=== PATIENT | female | born 1995 | race Hispanic/Latino ===

== ENCOUNTER 2019-08-02 13:49 | Emergency (ER) | payer BC, OTHER ==
[2019-08-02] MEDS ORDERED: LORAZEPAM 1 MG TABLET ONE (14:32)
--- NOTE | 2019-08-02 15:02 | RAD REPORT ---
EXAM DESCRIPTION: Clementina Single View08/02/2019 2:57 pm CLINICAL HISTORY: Chest pain COMPARISON: none FINDINGS: The lungs appear clear of acute infiltrate. The heart is normal size IMPRESSION: No acute abnormalities displayed
--- NOTE | 2019-08-02 15:08 | ER ---
Nurse's Notes [facility] Name: Clara Vo Age: 23 yrs Sex: Female : 1995 Arrival Date: 08/02/2019 Time: 13:51 Bed 20 Private MD: Diagnosis: Chest pain, unspecified Presentation: 08/01 14:01 Chief complaint: Patient states: States she has anxiety for 1 week. Had panic attack ll1 today while playing basketball. Had SOB, chest tightness, and N/V episode today. Stopped taking her citalopram. Coronavirus screen: Proceed with normal triage. Patient denies a cough. Patient reports shortness of breath or difficulty breathing. Patient denies measured and/or subjective temperature greater than 100.4F prior to today's visit. Patient denies travel on a cruise ship or to a country the [facility] currently lists as an affected area. Patient denies contact with known and/or suspected case of COVID-19. Ebola Screen: Patient denies travel to an Ebola-affected area in the 21 days before illness onset. Initial Sepsis Screen: Does the patient meet any 2 criteria? No. Patient's initial sepsis screen is negative. Does the patient have a suspected source of infection? No. Patient's initial sepsis screen is negative. Risk Assessment: Do you want to hurt yourself or someone else? Patient reports no desire to harm self or others. Onset of symptoms was July 26, 2019. 14:01 Method Of Arrival: Ambulatory ll1 14:01 Acuity: STEPHEN 4 ll1 Triage Assessment: 14:48 General: Appears in no apparent distress. uncomfortable, Behavior is cooperative, vc anxious. Pain: Denies pain. 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 - Social history:: Smoking status: Patient denies any tobacco usage or history of. Patient uses street drugs, marijuana, Patient/guardian denies using alcohol. Screenin:47 Abuse screen: Denies threats or abuse. Nutritional screening: No deficits noted. vc Tuberculosis screening: No symptoms or risk factors identified. Fall Risk None identified. Assessment: 14:45 General: Appears in no apparent distress. Behavior is anxious. Pain: Denies pain. Neuro: Level of Consciousness is awake, alert, Oriented to person, place, time, situation. Cardiovascular: Reports lightheadedness, palpitations, shortness of breath, episode earlier while playing basketball. She contributes this to stress and events going on in her life. 15:25 Reassessment: Patient appears in no apparent distress at this time. Patient and/or vc family updated on plan of care and expected duration. Pain level reassessed. Patient is alert, oriented x 3, equal unlabored respirations, skin warm/dry/pink. Patient states symptoms have improved. Respiratory: Airway is patent Respiratory effort is even, unlabored, Respiratory pattern is regular, symmetrical. Vital Signs: 14:01 BP 147 / 67; Pulse 83; Resp 18; Temp 98.6; Pulse Ox 100% ; Pain 5/10; ll1 14:30 BP 98 / 70; Pulse 76; Resp 18; Pulse Ox 97% on R/A; vc 15:00 BP 116 / 64; Pulse 64; Resp 17; Pulse Ox 99% ; vc ED Course: 13:51 Patient arrived in ED. mr 13:54 Rambo Crow FNP-C is [facility]. la1 13:54 Chong Saul MD is Attending Physician. la1 14:03 Triage completed. ll1 14:04 Arm band placed on Patient placed in an exam room, on a stretcher. ll1 14:15 Bed in low position. Call light in reach. Pulse ox on. NIBP on. vc 14:27 Ashia Marquez, RN is Primary Nurse. ah 14:47 EKG done, by ED staff, reviewed by Rambo GARRETT X-ray(s) taken. jp3 14:58 Chest Single View XRAY In Process Unspecified. EDMS 15:30 No provider procedures requiring assistance completed. Patient did not have IV access vc during this emergency room visit. Administered Medications: 14:33 Drug: Ativan 1 mg Route: PO; Outcome: 15:07 Discharge ordered by . la1 15:30 Patient left the ED. vc 15:30 Discharged to home via wheelchair. vc 15:30 Condition: improved 15:30 Discharge instructions given to patient, Instructed on discharge instructions, follow up and referral plans. Demonstrated understanding of instructions, follow-up care. Signatures: Dispatcher [employer] Tiff Parker mr TristinRambo, QUILT STUFFER-C QUILT STUFFER-Cla1 Patrick Adams jp3 Sharda Pizarro RN RN vc Harris, Amy, RN RN ah Lewis, Lynsay, RN RN ll1 Corrections: (The following items were deleted from the chart) 15:52 15:50 Patient left the ED. vc cano
--- NOTE | 2019-08-02 15:09 | EDPHYS ---
Physician Documentation [facility] Name: Clara Vo Age: 23 yrs Sex: Female : 1995 Arrival Date: 08/02/2019 Time: 13:51 Bed 20 Private MD: ED Physician Chong Saul HPI: 08/01 14:48 This 23 yrs old Female presents to ER via Ambulatory with complaints of la1 Anxiety. 14:48 The patient or guardian reports chest pain that is located primarily in the anterior la1 chest wall. The pain does not radiate. 15:03 Associated signs and symptoms: Pertinent negatives: diaphoresis, dizziness, headache, la1 lower extremity swelling, lightheadedness, nausea, near syncope. The chest pain is described as squeezing. Duration: The patient or guardian reports a single episode, that is now resolved. Modifying factors: The symptoms are alleviated by nothing. the symptoms are aggravated by nothing. Severity of pain: At its worst the pain was moderate in the emergency department the pain has improved. The patient has not experienced similar symptoms in the past. pt reports she has been under a lot of stress with multiple family and friend losses in the past couple weeks. 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 - Social history:: Smoking status: Patient denies any tobacco usage or history of. Patient uses street drugs, marijuana, Patient/guardian denies using alcohol. ROS: 15:04 Constitutional: Negative for fever, chills, and weight loss, Eyes: Negative for injury, la1 pain, redness, and discharge, ENT: Negative for injury, pain, and discharge, Neck: Negative for injury, pain, and swelling. 15:04 Respiratory: Negative for shortness of breath, cough, wheezing, and pleuritic chest pain, Abdomen/GI: Negative for abdominal pain, nausea, vomiting, diarrhea, and constipation, Back: Negative for injury and pain, MS/Extremity: Negative for injury and deformity, Skin: Negative for injury, rash, and discoloration, Neuro: Negative for headache, weakness, numbness, tingling, and seizure. 15:04 Cardiovascular: Positive for chest pain. Exam: 15:04 Constitutional: This is a well developed, well nourished patient who is awake, alert, la1 and in no acute distress. Head/Face: Normocephalic, atraumatic. Eyes: Pupils equal round and reactive to light, extra-ocular motions intact. Chest/axilla: Normal chest wall appearance and motion. Nontender with no deformity. No lesions are appreciated. Cardiovascular: Regular rate and rhythm with a normal S1 and S2. Respiratory: Lungs have equal breath sounds bilaterally, clear to auscultation Abdomen/GI: Soft, non-tender, with normal bowel sounds. Skin: Warm, dry with normal turgor. Normal color with no rashes, no lesions, and no evidence of cellulitis. 15:05 ECG was reviewed by the Attending Physician. la1 Vital Signs: 14:01 BP 147 / 67; Pulse 83; Resp 18; Temp 98.6; Pulse Ox 100% ; Pain 5/10; ll1 14:30 BP 98 / 70; Pulse 76; Resp 18; Pulse Ox 97% on R/A; vc 15:00 BP 116 / 64; Pulse 64; Resp 17; Pulse Ox 99% ; vc MDM: 13:54 Patient medically screened. la1 15:06 Differential diagnosis: abnormal EKG, acute myocardial infarction, anxiety, chest wall la1 pain, cholecystitis, costochondritis, esophagitis, gastritis. ECG:. AIRAM Risk Score: TOTAL SCORE = 0. Data reviewed: vital signs, nurses notes, EKG, radiologic studies, I have discussed the patient's presentation/case with the attending Emergency Department Physician; and as a result, I will discharge patient. Data interpreted: Pulse oximetry: on room air is 97 %. Interpretation: normal. Counseling: I had a detailed discussion with the patient and/or guardian regarding: the historical points, exam findings, and any diagnostic results supporting the discharge/admit diagnosis, radiology results, the need for outpatient follow up, a family practitioner, to return to the emergency department if symptoms worsen or persist or if there are any questions or concerns that arise at home. Special discussion: Based on the patient's history, exam, and Dx evaluation, there is no indication for emergent intervention or inpatient Tx. It is understood by the patient/guardian that if the Sx's persist or worsen they need to return immediately for re-evaluation. 08/01 14:25 Order name: Chest Single View XRAY; Complete Time: 15:04 la08/01 14: Order name: EKG; Complete Time: 14: la08/01 14: Order name: EKG - Nurse/Tech; Complete Time: 14:46 la1 EC:05 Rate is 57 beats/min. Rhythm is regular, Sinus bradycardia. QRS is negative in lead la1 aVF. QRS interval is normal. QT interval is normal. No Q waves. T waves are Inverted in leads aVR, V1. No ST changes noted. Clinical impression: Normal ECG and Sinus bradycardia. Administered Medications: 14: Drug: Ativan 1 mg Route: PO; Disposition: 08/02/19 15:07 Discharged to Home. Impression: Chest pain, unspecified. - Condition is Stable. - Discharge Instructions: Nonspecific Chest Pain, Nonspecific Chest Pain, [id number]. - Work release form, Medication Reconciliation Form, Thank You Letter form. - Follow up: Private Physician; When: 2 - 3 days; Reason: Recheck today's complaints, Re-evaluation by your physician. Follow up: Emergency Department; When: As needed; Reason: Worsening of condition. - Problem is new. - Symptoms have improved. Addendum: 08/04/2019 09:57 Co-signature as Attending Physician, Chong Saul MD I agree with the assessment and c godfrey plan of care. Signatures: Dispatcher [employer] Chong Chapman MD MD cha Attema, Lee, PRESSURE TANK OPERATOR-C PRESSURE TANK OPERATOR-Cla1 Sharda Pizarro RN RN vc Harris, Amy, RN RN Agnes Manuel RN RN ll1 Corrections: (The following items were deleted from the chart) 08/01 15:50 15:07 08/02/2019 15:07 Discharged to Home. Impression: Chest pain, unspecified. vc Condition is Stable. Forms are Medication Reconciliation Form, Thank You Letter, Antibiotic Education, Prescription Opioid Use. Follow up: Private Physician; When: 2 - 3 days; Reason: Recheck today's complaints, Re-evaluation by your physician. Follow up: Emergency Department; When: As needed; Reason: Worsening of condition. Problem is new. Symptoms have improved. la1
[2019-08-02 15:58] VITALS: TEMP 98.6
[2019-08-02 16:00] VITALS: BP 98/70; O2SAT 97
--- NOTE | 2019-08-03 06:49 | EKG ---
Test Date: 2019-08-02 Test Time: 14:36:17 Molded Goods Operator: DEBO MEASUREMENT RESULTS: Intervals: Rate: 57 WI: 154 QRSD: 90 QT: 424 QTc: 412 [place]: P: 40 WI: 154 QRS: 72 T: 53 INTERPRETIVE STATEMENTS: Sinus bradycardia Otherwise normal ECG No previous ECG available for comparison Electronically Signed On 08-03-19 06:48:34 CDT by Ivan Spears
== END 2019-08-02 15:50 | disposition home or self-care (01) ==
LOC: ER 13:49
DX: R07.9 Chest pain, unspecified (principal)
CPT/HCPCS: 71045; 93005; 99284

== ENCOUNTER 2023-08-02 12:11 | Emergency (ER) | payer SELFPAY ==
--- OUTSIDE RECORDS SUMMARY | 2023-08-02 12:14 | XMS REPORT | Continuity of Care Document ---
Author Name Unknown Address [address] [facility] [place] [address] [facility] Address [address] [facility] [address] [place] [address] Care Team Providers Care Schedule Hanger Name Role Phone Mckenna Pompa MD Primary Care Physician [phone] LILI FRANCO Attending Clinician Unavailab Lili Rivera DO Attending Clinician [phone] ELMA YEE Attending Clinician Unavailable Tyron Murguia Attending Clinician [phone] TYRON FLORES Attending Clinician Unavailable RINA NAIK Attending Clinician Unavailable Rina Naik PA-C Attending Clinician [phone] TEMO COTO Attending Clinician Unavailable Loren RENEE Attending Clinician Unavailable Loren Draper Attending Clinician [phone] MD REMINGTON Attending Clinician Unavailab Shireen Martinez RN Attending Clinician Unavailable MAGGIE CARDENAS Attending Clinician Unavaildereck e Only, Ang Db Test Attending Clinician UnavailMaggie García Attending Clinician [phone] LAB47 Attending Clinician Unavailable Chica STEVE, [place] Attending Clinician Doctor Unassigned, [place] Attending Clinician U cliff NurseJosh Urgent Attending Clinician Unavaildereck Reynolds MD, Fredy Shaw Attending Clinician ARY JACINTO M.D. Attending Clinician UnavailLYNDA Neff P.A. Attending Clinician Unavail TYRON Stokes Admitting Clinician Unavailable Payers Payer Name Policy Type Policy Number Effective Date Expirati on Date Source [employer]IG[employer] WITH MARIAJOSE ADDISON [id number] 2010 00:00:00 [facility] 2019 9 [id number] 2021 00:00:00 Problems Condition Name Condition Details Condition Category Status Onset Date Resolution Date Last Treatment Date Treating Clinician Comments Source Acquired acanthosis nigricans Acquired acanthosis nigricans Disease Active 10-31 00:00: 00 Mariajose Addison Depressive disorder, not elsewhere classified Depressive disorder, not elsewhere classified Disease Active 10-31 00:00: 00 Mariajose Addison Morbidly obese Morbidly obese Disease Active 10-31 00:00: 00 Mariajose Addison No known active problems No known active problems Disease [facility] Allergies, Adverse Reactions, Alerts Allergy Name Allergy Type Status Severity Reaction(s) Onset Date Inactive Date Treating Clinician Comments Source NO KNOWN ALLERGIE S Drug Class Active [facility] Social History Social Habit Start Date Stop Date Quantity Comments Source [facility] History of Social function 2022-10-25 00:00:00 2022-10-25 00:00:00 [facility] Exposure to SARS-CoV-2 (event) 2021-12-23 00:00:00 2022-01-02 11:57:00 Not sure [facility] Alcohol intake 2021-09-12 00:00:00 2021-09-12 00:00:00 Current non-drinker of alcohol (finding) Mariajose Addison Tobacco use and exposure 2017-05-14 00:00:00 2017-05-14 00:00:00 Smokeless tobacco non-user Mariajose Armijoold Sex Assigned At 1995 00:00:00 1995 00:00:00 Mariajose Secarisa Smoking Status Start Date Stop Date Source Never smoked tobacco Mariajose Addisno Medications Ordered Medication Name Filled Medication Name Start Date Stop Date Current Medication? Ordering Clinician Indication Dosage Frequency Signature (SIG) Comments Components Source sulfamethox azole-trime thoprim (BACTRIM DS) 800-160 mg per tablet 1 tablet 10-26 01:00: 00 10-29 00:59 :00 No 1{tbl} 1 tablet, Oral, BID, 6 doses, First dose on Sun10/25/22 at 2000, Last dose on Sun10/28/22 at 0800, ANA
Re ason for Anti-Infec tive: Documented Infection< br>Documen tez Infection Site: Urine
D uration of Therapy: 7 days [facility] Nitrofurant oin&Nit. Macrocryst 100 mg capsule 10-25 00:00: 00 10-31 04:59 :00 No [id number] 100mg Take 1 capsule by mouth in the morning and 1 capsule in the evening. Do all this for 5 days. [facility] dicyclomine (BENTYL) tablet 20 mg 01-02 17:15: 00 01-02 17:23 :00 No 20mg 20 mg, Oral, ONCE, 1 dose, On Sun01/02/22 at 1215, ANA [facility] NaCl 0.9% (NS) bolus infusion 1,000 mL 01-02 16:45: 00 01-02 17:15 :00 No 1000mL at 999 mL/hr, 1,000 mL, IV Infusion, ONCE, 1 dose, On Sun01/02/22 at 1145, ANA [facility] iopamidol (ISOVUE 370-500 mL) injection 79 mL 01-02 16:33: 00 01-02 16:33 :00 No [id number] 79mL 79 mL, Intravenou s, ONCE, 1 dose, On Sun01/02/22 at 1145, Routine [facility] ondansetron (ZOFRAN (PF)) injection 4 mg 01-02 16:00: 00 01-02 16:12 :00 No 4mg 4 mg, Slow IV Push, ONCE, 1 dose, On Sun01/02/22 at 1100, ANA [facility] morpHINE (4 mg/mL) injection 4 mg 01-02 16:00: 00 01-02 16:12 :00 No 4mg 4 mg, Slow IV Push, ONCE, 1 dose, On Sun01/02/22 at 1100, STAT [facility] dicyclomine 20 mg tablet 01-02 00:00: 00 10-25 00:00 :00 No [id number] 20mg Take 1 tablet by mouth 4 (four) times daily as needed for Abdominal pain. [facility] ondansetron 4 mg disintegrat ing tablet 01-02 00:00: 10-25 00:00 :00 No [id number] 4mg Take 1 tablet by mouth every 8 (eight) hours as needed for Nausea and Vomiting (N/V). [facility] ibuprofen (IBU) tablet 600 mg 09-05 01:00: 00 09-05 12:59 :00 No 600mg 600 mg, Oral, ONCE, 1 dose, On 09/04/21 at 2000, ANA [facility] doxycycline hyclate (Vibramycin ) capsule 100 mg 09-05 01:00: 00 09-05 00:05 :00 No 100mg 100 mg, Oral, ONCE, 1 dose, On 09/04/21 at 2000, ANA
Re ason for Anti-Infec tive: Documented Infection< br>Documen tez Infection Site: Skin / Soft Tissue
Duration of Therapy: 10 days [facility] Doxycycline Hyclate 100 MG oral Capsule 09-04 00:00: 00 Yes 1{capsu le} Take 1 capsule by mouth in the morning and 1 capsule in the evening. - 10 day course. Mariajose Addison Ibuprofen 600 MG oral Tablet 09-04 00:00: 00 Yes 1{tbl} Q.25D Take 1 tablet by mouth every 6 hours as needed for pain Mariajose Addison doxycycline hyclate 100 mg capsule 09-04 00:00: 00 10-25 00:00 :00 No [id number] 100mg Take 1 capsule by mouth 2 (two) times daily. [facility] ibuprofen 600 mg tablet 09-04 00:00: 10-25 00:00 :00 No [id number] 600mg Take 1 tablet by mouth every 6 (six) hours as needed for Pain (scale 4-6). [facility] Baclofen 10 MG oral Tablet - 00:00: 00 09-06 00:00 :00 No [id number] 10mg [id number] 3D Take 1 tablet (10 mg total) by mouth 3 times daily as needed for muscle spasms or pain Mariajose Addison metoclopram kevin HCl (REGLAN) injection 10 mg 11-10 09:45: 00 11-10 08:34 :00 No 10mg 10 mg, Slow IV Push, ONCE, 1 dose, 11/11/19 at 0445, [facility] ondansetron (ZOFRAN (PF)) injection 4 mg 11-10 08:45: 11-10 07:47 :00 No 4mg 4 mg, Slow IV Push, ONCE, 1 dose, 11/11/19 at 0345, [facility] NaCl 0.9% (NS) bolus infusion 1,000 mL 11-10 07:45: 11-10 11:12 :00 No 1000mL at 999 mL/hr, 1,000 mL, IV Infusion, ONCE, 1 dose, 11/11/19 at 0245, [facility] metoclopram kevin HCl 10 mg tablet 11-10 00:00: 00 10-25 00:00 :00 No [id number] 10mg Take 1 tablet by mouth every 6 (six) hours as needed for Nausea and Vomiting (N/V). [facility] Ondansetron HCl 4 MG oral Tab 8-03 00:00: 04-19 00:00 :00 No 4mg Q8H Take 1 tablet (4 mg total) by mouth every 8 hours as needed for nausea Mariajose Addison Citalopram Hydrobromid e 40 MG oral Tab 722 00:00: 00 04-19 00:00 :00 No [id number] 40mg Take 1 tablet (40 mg total) by mouth daily Mariajose Addison ondansetron (ZOFRAN ODT) 8 mg disintegrat ing tablet 12-23 00:00: 00 10-25 00:00 :00 No 8mg Take 1 tablet by mouth every 8 (eight) hours as needed for Nausea and Vomiting (N/V). [facility] dicyclomine (BENTYL) 20 mg tablet 12-23 00:00: 11-10 00:00 :00 No 20mg Take 1 tablet by mouth 3 (three) times daily as needed for Abdominal pain. [facility] traMADOL (ULTRAM) 50 mg tablet 09-02 00:00: 11-10 00:00 :00 No 50mg Take 1 tablet by mouth every 6 (six) hours as needed for Pain (scale 4-6). [facility] pantoprazol e (PROTONIX) 40 mg EC tablet 08-29 00:00: 11-10 00:00 :00 No 40mg Take 1 tablet by mouth daily. [facility] dicyclomine (BENTYL) 20 mg tablet 08-29 00:00: 11-10 00:00 :00 No 20mg Take 1 tablet by mouth 4 (four) times daily. [facility] metoclopram kevin HCl (REGLAN) 10 mg tablet 08-07 00:00: 11-10 00:00 :00 No 10mg Take 1 tablet by mouth every 6 (six) hours. [facility] Vital Signs Vital Name Observation Time Observation Value Comments S ource Systolic blood pressure 2022-10-26 02:15:00 121 mm[Hg] [facility] Diastolic blood pressure 2022-10-26 02:15:00 73 mm[Hg] [facility] Heart rate 2022-10-26 02:15:00 77 /min [facility] Respiratory rate 2022-10-26 02:15:00 16 /min [facility] Oxygen saturation in Arterial blood by Pulse oximetry 2022-10-26 02:15:00 97 /min [facility] Body temperature 2022-10-25 18:55:00 35.72 Lety [facility] Body height 2022-10-25 18:55:00 154.9 cm [facility] Body weight 2022-10-25 18:55:00 99.791 kg [facility] BMI 2022-10-25 18:55:00 41.57 kg/m2 [facility] Systolic blood pressure 2022-01-02 15:57:00 132 mm[Hg] [facility] Diastolic blood pressure 2022-01-02 15:57:00 88 mm[Hg] [facility] Heart rate 2022-01-02 15:57:00 96 /min [facility] Body temperature 2022-01-02 15:57:00 36.61 Lety [facility] Respiratory rate 2022-01-02 15:57:00 20 /min [facility] Body height 2022-01-02 15:57:00 157.5 cm [facility] Body weight 2022-01-02 15:57:00 104.327 kg [facility] BMI 2022-01-02 15:57:00 42.07 kg/m2 [facility] Oxygen saturation in Arterial blood by Pulse oximetry 2022-01-02 15:57:00 97 /min [facility] Systolic blood pressure 2021-09-12 19:06:00 120 mm[Hg] Mariajose bowen Diastolic blood pressure 2021-09-12 19:06:00 70 mm[Hg] Mariajose bowen Heart rate 2021-09-12 19:06:00 80 /min Ashley Addison Body temperature 2021-09-12 19:06:00 36.56 Lety Mariajose Bernalybfernie Respiratory rate 2021-09-12 19:06:00 13 /min Mariajose Addison Body weight 2021-09-12 19:06:00 116.121 kg Marnie allen Seybfernie BMI 2021-09-12 19:06:00 50.00 kg/m2 Marnie ey Seybold BMI 2021-09-06 20:04:00 49.45 kg/m2 Marnie ey Seybold Systolic blood pressure 2021-09-06 20:04:00 126 mm[Hg] Mariajose Seybo ld Diastolic blood pressure 2021-09-06 20:04:00 84 mm[Hg] Mariajose Seybo ld Heart rate 2021-09-06 20:04:00 84 /min Ashley Addison Body temperature 2021-09-06 20:04:00 36.39 Lety Mariajose Addison Respiratory rate 2021-09-06 20:04:00 18 /min Mariajose Addison Body weight 2021-09-06 20:04:00 114.851 kg Marnie allen Seybfernie Systolic blood pressure 2021-09-04 22:29:00 125 mm[Hg] [facility] Diastolic blood pressure 2021-09-04 22:29:00 85 mm[Hg] [facility] Heart rate 2021-09-04 22:29:00 72 /min [facility] Body temperature 2021-09-04 22:29:00 36.28 Lety [facility] Respiratory rate 2021-09-04 22:29:00 18 /min [facility] Body weight 2021-09-04 22:29:00 104.327 kg [facility] BMI 2021-09-04 22:29:00 43.46 kg/m2 [facility] Oxygen saturation in Arterial blood by Pulse oximetry 2021-09-04 22:29:00 99 /min [facility] Systolic blood pressure 2021-04-19 15:20:00 122 mm[Hg] Mariajose Seybo ld Diastolic blood pressure 2021-04-19 15:20:00 78 mm[Hg] Mariajose Seybo ld Heart rate 2021-04-19 15:20:00 80 /min Ahsley Addison Body temperature 2021-04-19 15:20:00 36.44 Lety Mariajose Addison Respiratory rate 2021-04-19 15:20:00 18 /min Mariajose Addison Body weight 2021-04-19 15:20:00 110.859 kg Marnie Addison BMI 2021-04-19 15:20:00 47.73 kg/m2 Marnie Addison Systolic blood pressure 2019-11-11 10:58:00 100 mm[Hg] [facility] Diastolic blood pressure 2019-11-11 10:58:00 59 mm[Hg] [facility] Heart rate 2019-11-11 10:45:00 67 /min [facility] Oxygen saturation in Arterial blood by Pulse oximetry 2019-11-11 10:45:00 99 /min [facility] Respiratory rate 2019-11-11 09:00:00 16 /min [facility] Body temperature 2019-11-11 07:42:00 36.78 Lety [facility] Body height 2019-11-11 07:42:00 154.9 cm [facility] Body weight 2019-11-11 07:42:00 104.327 kg [facility] BMI 2019-11-11 07:42:00 43.46 kg/m2 [facility] Procedures Procedure Date / Time Performed Performing Clinician Source PROTHROMBIN TIME / INR 2022-10-25 22:22:00 Albert Franco [facility] ACTIVATED PARTIAL THRMPLAS MELIZA 2022-10-25 22:22:00 Lili Franco [facility] SALICYLATE 2022-10-25 22:21:00 [facility] COMP. METABOLIC PANEL ([id number]) 2022-10-25 19:57:00 Lili Franco [facility] ETHANOL 2022-10-25 19:57:00 Lili Franco [facility] CBC WITH DIFF 2022-10-25 19:57:00 [facility] 2022-10-25 19:57:00 Lili Franco [facility] COVID-19 (MOLECULAR TESTING NUCLEIC ACID AMPLIFICATION) 2022-10-25 19:57:00 Lili Franco [facility] COVID-19 (ID NOW RAPID TESTING) 2022-10-25 19:57:00 Lili Franco [facility] URINE DRUG (IMMUNOASSAY) - COMPREHENSIVE DRUG SCREEN W/O REFLEX 2022-10-25 19:57:00 Lili Franco [facility] CT ABDOMEN PELVIS W CONTRAST 2022-01-02 16:38:00 Mor [facility] LIPASE 2022-01-02 16:11:00 Mor [facility] COMP. METABOLIC PANEL ([id number]) 2022-01-02 16:11:00 [facility] 2022-01-02 16:11:00 Tyron Flores [facility] URINALYSIS 2022-01-02 16:11:00 Mor [facility] POCT TEST 2022-01-02 16:11:00 Sandrita Flores [facility] CONSENT/REFUSAL FOR DIAGNOSIS AND TREATMENT 2022-01-02 15:40:28 Doctor Unassigned, [place] [facility] NOTICE OF PRIVACY PRACTICES 2021-09-04 22:27:13 Doctor Unassigned, [place] [facility] CONSENT/REFUSAL FOR DIAGNOSIS AND TREATMENT 2021-09-04 22:27:00 Doctor Unassigned, [place] [facility] URINALYSIS 2019-11-11 08:41:00 Lili Franco [facility] POCT TEST 2019-11-11 08:37:00 Zaira Franco ra [facility] XR CHEST 1 VW 2019-11-11 08:10:13 [facility] 2019-11-11 07:46:00 Lili Franco [facility] HEPATIC FUNCTION PANEL ([id number]) (ALB,T.PRO,BILI T,BU/BC,ALT,AST,ALK PHOS) 2019-11-11 07:46:00 Lili Franco [facility] BASIC METABOLIC PANEL (NA, K, CL, CO2, GLUCOSE, BUN, CREATININE, CA) 2019-11-11 07:46:00 Lili Franco [facility] CBC WITH DIFF 2019-11-11 07:46:00 [facility] XRAY PELVIS MIN 3 VWS [id number] 2019-01-17 00:00:00 [facility] [U] XRAY PELVIS MIN 3 VWS [id number] 2018-10-18 00:00:00 [facility] [U] XRAY PELVIS MIN 3 VWS [id number] 2018-09-04 00:00:00 [facility] Encounters Start Date/Time End Date/Time Encounter Type Admission Type Attending [facility] Care Facility Care Department Encounter ID Source 2022-10-25 13:55:00 2022-10-25 22:11:00 Emergency X LILI FRANCO [facility] ERT [id number] [facility] 2022-10-25 13:55:00 2022-10-25 22:11:00 Emergency Lili Franco [facility] [id number] 350.1.13.10 4.2.7.2.686 [id number] [facility] 2022-04-05 00:00:00 2022-04-05 00:00:00 Outpatient ELMA YEE [id number] Mariajose carisa 2022-01-02 10:58:00 2022-01-02 13:04:00 Emergency Tyron Flores [facility] .2.840.114 350.1.13.10 4.2.7.2.686 [id number] [facility] 2022-01-02 10:58:00 2022-01-02 13:04:00 Emergency X FLORES, TYRON [facility] ERT [id number] [facility] 2022-01-02 00:00:00 2022-01-02 00:00:00 Outpatient ELMA YEE [id number] [facility] 2021-09-13 14:00:00 2021-09-13 14:00:00 Outpatient RINA NAIK [facility]IAJOSE DRAKE [id number] [facility] 2021-09-12 14:00:00 2021-09-12 14:30:00 Office Visit Rina Naik 1.2.840.114 350.1.13.13 [id number] [id number] [facility] 2021-09-09 15:45:00 2021-09-09 15:45:00 Outpatient MARIAJOSE DRAKE [id number] [facility] 2021-09-09 15:30:00 2021-09-09 15:30:00 Outpatient MARIAJOSE DRAKE [id number] [facility] 2021-09-07 16:00:00 2021-09-07 16:00:00 Outpatient TEMO COTO MARIAJOSE DRAKE [id number] Mariajose [facility] 2021-09-06 14:45:00 2021-09-06 14:45:00 Office Visit TEMO COTO 1.2.840.114 350.1.13.13 1.2.7.2.686 [id number] Mariajose [facility] 2021-09-04 17:32:00 2021-09-04 19:10:00 Emergency X Loren RENEE [facility] ERT [id number] [facility] 2021-09-04 17:32:00 2021-09-04 19:10:00 Emergency Loren Renee [facility] 1.2.840.114 350.1.13.10 4.2.7.2.686 [id number] [facility] 2021-08-22 00:00:00 2021-08-22 00:00:00 Outpatient MD MARIAJOSE FRENCH [id number] Mariajose carisa 2021-05-23 00:00:00 2021-05-23 00:00:00 Outpatient MD MARIAJOSE FRENCH [id number] [facility] 2021-05-18 00:00:00 2021-05-18 00:00:00 Telephone Shireen Miranda [facility] 1..114 350.1.13.10 4.2.7.2.686 [id number] [facility] 2021-05-17 13:15:00 2021-05-17 13:39:11 [facility] [id number] [facility] 2021-05-17 13:15:00 2021-05-17 13:30:00 Laboratory Only Only, Ang Db Test [facility] 1.2.114 350.1.13.10 4.2.7.2.686 [id number] [facility] 2021-04-19 11:15:00 2021-04-19 11:15:00 Outpatient LAB47 MARIAJOSE DRAKE [id number] [facility] 2021-04-19 09:00:00 2021-04-19 09:15:00 Office Visit Temo Coto 1..114 350.1.13.13 1.2.7.2.686 [id number] [facility] 2021-03-22 00:00:00 2021-03-22 00:00:00 Patient Secure Msg Doctor Unassigned, [place] [facility] 1..114 350.1.13.10 4.2.7.2.686 [id number] [facility] 2019-11-12 00:00:00 2019-11-12 00:00:00 [facility] 1.2.114 350.1.13.10 4.2.7.2.686 [id number] [facility] 2019-11-12 00:00:00 2019-11-12 00:00:00 Telephone Fredy Reynolds [facility] 1.2.840.114 350.1.13.10 4.2.7.2.686 [id number] [facility] 2019-11-11 02:33:00 2019-11-11 06:15:00 Emergency Lili Franco [facility] 1.2.840.114 350.1.13.10 4.2.7.2.686 [id number] [facility] 2019-11-11 02:33:00 2019-11-11 02:33:00 Emergency X LILI FRANCO [facility] ERT [id number] [facility] 2019-01-23 11:00:00 2019-01-23 11:00:00 Appointmen t; RAY JACINTO M.D. GARY, JOSHUA, M.D. [facility] Orthopedics Tra[facility] [id number] [place] [facility] 2018-10-24 11:00:00 2018-10-24 11:00:00 Appointmen t; RAY JACINTO M.D. GARY, JOSHUA, M.D. [facility] Orthopedics Trauma [facility] [id number] [place] [facility] 2018-09-12 11:15:00 2018-09-12 11:15:00 Appointmen t; LYNDA VANG P.A. LIVELY, AUDREY, P.A. [facility] Orthopedics [id number] [place] [facility] 2018-08-15 11:15:00 2018-08-15 11:15:00 Appointmen t; RAY JACINTO M.D. GARY, JOSHUA, M.D. [facility] [id number] [place] [facility] Results Test Description Test Time Test Comments Results Result Comments Source SALICYLATE 23:10:25 SALICYLATE<10mg/L10/26/19 23 6:10 PM [facility] Range: ? Analgesic and Antipyretic Use ? 20-100 mg/L ? ? Anti-Inflammatory Use ? 100-250 mg/L Toxic Range: ? Greater than 300 mg/L [facility] [id number] 23:00:41* Test Item Value Reference Range Interpretation Comme [facility] APTT Patient (test code = 3173-2) 29 See_Comment [Automated message] The system which generated this result transmitted reference range: 23 - 38 Seconds. The reference range was not used to interpret this result as normal/abnormal. LAILA (test code = LAILA) The [facility] patient population mean normal value for aPTT is 30 seconds. Lab Interpretation (test code = 34765-2) Normal [facility] TIME / [id number] 22:58:42* Test Item Value Reference Range Interpretation Comme [facility] PROTIME PATIENT (test code = 5964-2) 13.4 See_Comment [Automated messa ge] The system which generated this result transmitted reference range: 12.0 - 14.7 Seconds. The reference range was not used to interpret this result as normal/abnormal. INR (test code = 6301-6) 1.1 Normal INR <1.1; Warfarin Therapeutic range 2.0 to 3.0 or 2.5 to 3.5, depending upon the indications. Lab Interpretation (test code = 55436-7) Normal [facility] HospitalETH[facility]OL2023-07-19 20:57:11 ALCOHOL<10mg/dL10/25/2022 3:57 PM [facility]<10 [id number] Toxic>100 Depression of SUPERVISOR PRE WAVE>400 [facility]Un[facility] HospitalCOMP. METABOLIC PANEL ([id number])2022-10-25 20:54:42* Test Item Value Reference Range Interpretation Comme [facility] NA (test code = 3019098372) 136 mmol/L 135-145 K (test code = 1577695649) 5.4 mmol/L 3.5-5.0 H CL (test code = 6159501276) 103 mmol/L 98-108 CO2 TOTAL (test code = 0750179222) 23 mmol/L 23-31 AGAP (test code = 6494825003) 10 2-16 BUN (test code = 3665462589) 13 mg/dL 7-23 GLUCOSE (test code = 3155566664) 103 mg/dL 70-110 CREATININE (test code = 9652101251) 0.53 mg/dL 0.50-1.04 TOTAL BILI (test code = 9338138823) 0.8 mg/dL 0.1-1.1 CALCIUM (test code = 1366018502) 9.0 mg/dL 8.6-10.6 T PROTEIN (test code = 2499955871) 7.2 g/dL 6.3-8.2 ALBUMIN (test code = 1852790839) 4.2 g/dL 3.5-5.0 ALK PHOS (test code = 5778127630) 63 U/L 34-122 ALTv (test code = 1742-6) 21 U/L 5-35 AST(SGOT) (test code = 5847667458) 34 U/L 13-40 eGFR (test code = 9527835403) 139.4 mL/min/1.73m2 LAILA (test code = LAILA) Association of Glomerular Filtration Rate (GFR) and Staging of Kidney Disease* + --+ --+ ------+| GFR (mL/min/1.73 m2) ?| With Kidney Damage ?| ?Without Kidney Damage+ --------+ --------+ +| ?>90 ?| ?Stage one ?| ? Normal ?+ ---+ ---+ -------+| ?60-89 ?| ?Stage two ?| ? Decreased GFR ? + --+ --+ ------+| ?30-59 ?| ?Stage three ?| ? Stage three ? + --+ --+ ------+| ?15-29 ?| ?Stage four ? | ? Stage four ?+ ---+ ---+ -------+| ?<15 (or dialysis) ? ?| ?Stage five ? | ? Stage five ?+ ---+ ---+ -------+ *Each stage assumes the associated GFR level has been in effect for at least three months. ?Stages 1 to 5, with or without kidney disease, indicate chronic kidney disease. Notes: Determination of stages one and two (with eGFR >59mL/min/1.73 m2) requires estimation of kidney damage for at least three months as defined by structural or functional abnormalities of the kidney, manifested by either:Pathological abnormalities or Markers of kidney damage (including abnormalities in the composition of the blood or urine or abnormalities in imaging tests). Lab Interpretation (test code = 54574-0) Abnormal [facility] WITH DJLV2696-24-80 20:16:52* Test Item Value Reference Range Interpretation Comme nts WBC (test code = 6690-2) 13.88 See_Comment H [Automated message] The system which generated this result transmitted reference range: 4.30 - 11.10 10*3/?L. The reference range was not used to interpret this result as normal/abnormal. RBC (test code = 789-8) 4.64 See_Comment [Automated message] The system which generated this result transmitted reference range: 3.93 - 5.25 10*6/?L. The reference range was not used to interpret this result as normal/abnormal. HGB (test code = 718-7) 13.0 g/dL 11.6-15.0 HCT (test code = 4544-3) 40.0 % 35.7-45.2 MCV (test code = 787-2) 86.2 fL 80.6-95.5 MCH (test code = 785-6) 28.0 pg 25.9-32.8 MCHC (test code = 786-4) 32.5 g/dL 31.6-35.1 RDW-SD (test code = 33682-3) 43.9 fL 39.0-49.9 RDW-CV (test code = 788-0) 14.0 % 12.0-15.5 PLT (test code = 777-3) 308 See_Comment [Automated message] The system which generated this result transmitted reference range: 166 - 358 10*3/?L. The reference range was not used to interpret this result as normal/abnormal. MPV (test code = 50266-6) 10.7 fL 9.5-12.9 NRBC/100 WBC (test code = 8932529030) 0.0 See_Comment [Automated message] The system which generated this result transmitted reference range: 0.0 - 10.0 /100 WBCs. The reference range was not used to interpret this result as normal/abnormal. NRBC x10^3 (test code = 5172174725) See_Comment [Automated message] The system which generated this result transmitted reference range: 10*3/?L. The reference range was not used to interpret this result as normal/abnormal. GRAN MAT (NEUT) % (test code = 770-8) 73.3 % IMM GRAN % (test code = 8738855056) 0.40 % LYMPH % (test code = 736-9) 20.0 % MONO % (test code = 5905-5) 5.4 % EOS % (test code = 713-8) 0.6 % BASO % (test code = 706-2) 0.3 % GRAN MAT x10^3(ANC) (test code = 4947230995) 10.18 10*3/uL 1.88-7.09 H IMM GRAN x10^3 (test code = 7970164035) 0.05 10*3/uL 0.00-0.06 LYMPH x10^3 (test code = 731-0) 2.78 10*3/uL 1.32-3.29 MONO x10^3 (test code = 742-7) 0.75 10*3/uL 0.33-0.92 EOS x10^3 (test code = 711-2) 0.08 10*3/uL 0.03-0.39 BASO x10^3 (test code = 704-7) 0.04 10*3/uL 0.01-0.07 Lab Interpretation (test code = 41981-0) [facility]normal [facility] RKHV1968-89-02 16:11:00* Test Item Value Reference Range Interpretation Comme nts POCT PREG (test code = 1605) NEGATIVE On board controls acceptable with C Line (test code = 3574) present POCT PREG LOT # (test code = 3575) [id number] POCT PREG TEST DATE ( test code = 3576) 04/08/2023 Lab Interpretation (test cod e = 75860-9) Normal [facility]inalysis2020-08-04 09:13:00* Test Item Value Reference Range Interpretation Comme nts APPEARANCE (test code = 1753296828) Hazy Clear A COLOR (test code = 2982961180) Yellow Yellow PH (test code = 2114488766) 4.8-8.0 SP GRAVITY (test code = 9918497920) 1.003-1.030 GLU U QUAL (test code = 5095395252) Normal Normal BLOOD (test code = 9532949793) Negative Negative KETONES (test code = 7685850767) 80 mg/dL Negative A PROTEIN (test code = 2887-8) Negative Negative UROBILIN (test code = 3584706783) Normal Normal BILIRUBIN (test code = 8568154623) Negative Negative NITRITE (test code = 7712404455) Negative Negative LEUK DRAKE (test code = 4582673963) 75/uL Negative A RBC/HPF (test code = 9500004387) See_Comment [Automated messa ge] The system which generated this result transmitted reference range: 0 - 3 HPF. The reference range was not used to interpret this result as normal/abnormal. WBC/HPF (test code = 3502609312) See_Comment [Automated messa ge] The system which generated this result transmitted reference range: 0 - 5 HPF. The reference range was not used to interpret this result as normal/abnormal. BACTERIA (test code = 2259695973) Moderate Negative A MUCOUS (test code = 2465669524) Marked Negative LPF A SQ EPITH (test code = 5887871370) HPF Lab Interpretation (test code = 29968-8) Abnormal [facility] Rsyj5237-19-92 08:37:00* Test Item Value Reference Range Interpretation Comme [facility] POCT PREG LOT # (test code = 3575) [id number] POCT PREG TEST DATE ( test code = 3576) 01/06/2021 POCT PREG (test code = 1605) Negative On board controls acceptable with C Line (test code = 3574) Present Lab Interpretation (test cod e = 43705-7) Normal [facility] (NA, K, CL, CO2, GLUCOSE, BUN, CREATININE, CA)2019-11-11 08:06:00* Test Item Value Reference Range Interpretation Comme [facility] NA (test code = 0012282312) 138 mmol/L 135-145 K (test code = 6053865927) 4.1 mmol/L 3.5-5 CL (test code = 6485545745) 107 mmol/L 98-108 CO2 TOTAL (test code = 7385285176) 21 mmol/L 23-31 L AGAP (test code = 8464722661) 2-16 BUN (test code = 9433815783) 12 mg/dL 7-23 GLUCOSE (test code = 2743019280) 111 mg/dL 70-110 H CREATININE (test code = 6850304377) 0.54 mg/dL 0.5-1.04 CALCIUM (test code = 3611067219) 9.5 mg/dL 8.6-10.6 eGFR Calculation (Non-) (test code = 6821636659) mL/min/1.73m2 eGFR Calculation () (test code = 9702814112) mL/min/1.73m2 LAILA (test code = LAILA) Association of Glomerular Filtration Rate (GFR) and Staging of Kidney Disease* + --+ --+ ------+| GFR (mL/min/1.73 m2) ?| With Kidney Damage ?| ?Without Kidney Damage+ --------+ --------+ +| ?>90 ?| ?Stage one ?| ? Normal ?+ ---+ ---+ -------+| ?60-89 ?| ?Stage two ?| ? Decreased GFR ? + --+ --+ ------+| ?30-59 ?| ?Stage three ?| ? Stage three ? + --+ --+ ------+| ?15-29 ?| ?Stage four ? | ? Stage four ?+ ---+ ---+ -------+| ?<15 (or dialysis) ? ?| ?Stage five ? | ? Stage five ?+ ---+ ---+ -------+ *Each stage assumes the associated GFR level has been in effect for at least three months. ?Stages 1 to 5, with or without kidney disease, indicate chronic kidney disease. Notes: Determination of stages one and two (with eGFR >59mL/min/1.73 m2) requires estimation of kidney damage for at least three months as defined by structural or functional abnormalities of the kidney, manifested by either:Pathological abnormalities or Markers of kidney damage (including abnormalities in the composition of the blood or urine or abnormalities in imaging tests). Lab Interpretation (test code = 50709-0) Abnormal [facility] HospitalLipase Zoiju4977-07-49 08:06:00* Test Item Value Reference Range Interpretation Comme nts LIPASE (test code = 1407823992) 26 U/L 0-220 Lab Interpretation (test cod e = 85239-2) Normal [facility] HospitalHepatic Function Panel (ALB, T.PRO, BILI T, BU/BC, ALT, AST, ALK PHOS)2019-11-11 08:06:00* Test Item Value Reference Range Interpretation Comme nts TOTAL BILI (test code = 7801507370) 0.9 mg/dL 0.1-1.1 BILI UNCON (test code = 0668758710) 0.8 mg/dL 0.1-1.1 BILI CONJ (test code = 5957566269) 0.0 mg/dL 0-0.3 T PROTEIN (test code = 9552544381) 8.7 g/dL 6.3-8.2 H ALBUMIN (test code = 2253566812) 5.1 g/dL 3.5-5 H ALK PHOS (test code = 8536684529) 73 U/L 34-122 ALTv (test code = 1742-6) 23 U/L 5-35 AST(SGOT) (test code = 6655124202) 35 U/L 13-40 Lab Interpretation (test cod e = 04687-7) Abnormal [facility] HospitalCB with Tyachstbuivg3280-07-92 07:55:00* Test Item Value Reference Range Interpretation Comme nts WBC (test code = 6690-2) See_Comment [Automated [employer]] The system which generated this result transmitted reference range: 4.30 - 11.10 10*3/?L. The reference range was not used to interpret this result as normal/abnormal. RBC (test code = 789-8) See_Comment [Automated [employer]] The system which generated this result transmitted reference range: 3.93 - 5.25 10*6/?L. The reference range was not used to interpret this result as normal/abnormal. HGB (test code = 718-7) 14.5 g/dL 11.6-15 HCT (test code = 4544-3) 44.0 % 35.7-45.2 MCV (test code = 787-2) 84.8 fL 80.6-95.5 MCH (test code = 785-6) 27.9 pg 25.9-32.8 MCHC (test code = 786-4) 33.0 g/dL 31.6-35.1 RDW-SD (test code = 06625-2) 40.8 fL 39-49.9 RDW-CV (test code = 788-0) 13.2 % 12-15.5 PLT (test code = 777-3) See_Comment [Automated messa ge] The system which generated this result transmitted reference range: 166 - 358 10*3/?L. The reference range was not used to interpret this result as normal/abnormal. MPV (test code = 48214-1) 10.5 fL 9.5-12.9 NRBC/100 WBC (test code = 9409765205) See_Comment [Automated [employer] ssage] The system which generated this result transmitted reference range: 0.0 - 10.0 /100 WBCs. The reference range was not used to interpret this result as normal/abnormal. NRBC x10^3 (test code = 4765458510) <0.01 See_Comment [Automated messa ge] The system which generated this result transmitted reference range: 10*3/?L. The reference range was not used to interpret this result as normal/abnormal. GRAN MAT (NEUT) % (test code = 770-8) 75.9 % IMM GRAN % (test code = 8400839749) 0.40 % LYMPH % (test code = 736-9) 16.0 % MONO % (test code = 5905-5) 6.0 % EOS % (test code = 713-8) 1.3 % BASO % (test code = 706-2) 0.4 % GRAN MAT x10^3(ANC) (test code = 4158113789) 8.34 10*3/uL 1.88-7.09 H IMM GRAN x10^3 (test code = 1061933261) 0.04 10*3/uL 0-0.06 LYMPH x10^3 (test code = 731-0) 1.75 10*3/uL 1.32-3.29 MONO x10^3 (test code = 742-7) 0.66 10*3/uL 0.33-0.92 EOS x10^3 (test code = 711-2) 0.14 10*3/uL 0.03-0.39 BASO x10^3 (test code = 704-7) 0.04 10*3/uL 0.01-0.07 Lab Interpretation (test code = 42860-6) Abnormal [facility][U] XRAY PELVIS MIN 3 VWS 259693557-85-77 11:05:00Images acquired, not reported on this accession number.[facility] Notes Date/Time Note Provider Source 2022-10-25 22:10:10 eYDX94qf73Cck+EryDtq MPkxxAP5BvK W+DT+rWsAl3qlcUlGzllNQuYHksbmm3 LH7849-70-23N99:10:10 Pt discharged home following ERP eval and [place] assessment. Patient given all education and information regarding s/s of worsening condition; the importance of specialty care follow up as discussed and agreed upon; and prescription use for UTI. Pt verbalized understanding. Vss. Alert and ambulatory to lobby to await spouse arrival. 40008-1Biixslirs department JteaHQ4103-45-62T54:11:31[facility] department NoteTXT1.2.840.003256.1.13.104. 2.7.2.563534|[id number] ble for patient hxte663876095Uhpivv A Paul RNUT[address] 15655IHITLYFYBDIVKUNEHGCPHZ3226 -07-19T22:11:311.2.840.031445.1 .72.3.15|1.2.840.454377.1.13.10 4.2.7.2.727879_[id number] Bessie Olivera RN [facility] 2022-10-25 21:42:00 n1fu2GzFrVG+F0cGBg/n Uoy6Fd2RKf8 q8N4qWJcCyfk3t7YQL46tcrN1LwnJGw bM9144-83-70I33:42:00 [facility] finished with assessment. Spoke with ERP and safety plan with discharge home was determined. Patient aware and stable awaiting discharge. [address]-3[address] KomfTO1543-45-70B91:42:41[facility] NoteTXT1.2.840.396147.1.13.104. 2.7.2.400291|[id number] ble for patient [address] 71016XDNKZPPXEHHILQWEXTQTWI6625 -07-19T21:42:411.2.840.581277.1 .72.3.15|1.2.840.355490.1.13.10 4.2.7.2.727879_[id number] [facility] 2022-10-25 20:34:51 DNnVc0IRw8H0sPRP6/UV xeGLpUen9AD CEM1Nr63lpIL44D/bUce5UP2uYLgxk8 Wr7090-17-67V25:34:51 [facility] at bedside for assessment' 99612-9Pfnjvdipj department ZgumQF6723-06-11R10:35:03[facility] NoteTXT1.2.840.463554.1.13.104. 2.7.2.126681|[id number] ble for patient [address] 51293CQYOSHWXZSYOAZQYJERKQZ7638 -07-19T20:35:031.2.840.610393.1 .72.3.15|1.2.840.118218.1.13.10 4.2.7.2.727879_[id number] [facility] 2022-10-25 18:48:21 bqD93Q4teowdxvag6OjX F4B26OFXXOJ 50yCQQAbOBc54uBk/eMNDUQZH8gciBP cN4505-30-50L92:48:21 Suicide Risk - Assessment and PlanColumbia:1) Have you wished you were or could go to sleep and not wake up?: (P) Yes2) Have you had thoughts of killing yourself?: (P) Yes3) Have you been thinking about how you might kill yourself?: (P) Yes 4) Suicidal ideation with some intent?: (P) Yes 5) Have you worked out the details of the plan AND intend to follow through?: (P) Yes 6) Suicidal Behavior or preparation for suicide?: (P) Yes 6b) Was it in the past 3 months?: (P) YesColumbia Score:Suggested risk level: (P) HighSAFE-T:Current and past psychiatric diagnoses: Other (see comments) (depression)Presenting symptoms: (P) Impulsivity;AnhedoniaFamily history: (P) No family history of psychiatric illnessActivating Events: (P) None identified Protective factors: (P) None identified Access to Lethal Means:Does patient have access to a gun or access to guns?: (P) NoSpecific Questions of Thoughts, Plans, Intent:Frequency- how many times have you had these thought?: (P) Once a week2.Duration - When you have the thoughts, how long do they last?: (P) Less than 1 hour/some of the time3.Controllability - could/can you stop thinking about killing yourself or wanting to if you want to? "Is it easy, a little hard, very hard, or are you unable?": (P) Can control thoughts with some difficulty4.Deterrents - are there things, anyone or anything (family, anabaptism, pain of ) that have stopped you from wanting to or acting on thoughts of committing suicide?: (P) Does not apply Behavior Assessment:1.Were there preparatory acts like buying pills, guns, giving things away, or writing suicide note?: (P) No2.Was an attempt aborted or self - interrupted?: (P) No3.Was an attempt interrupted by someone else?: (P) No4.Was there an actual attempt?: (P) Yes5.Is there non suicidal self injury? Cutting, biting, skin picking: (P) No 7.Is there homicidal ideation: if so, describe: (P) No Stratification:High Suicide Risk Moderate Suicide Risk Low Suicide Risk ?? Suicidal ideation with intent or intent with plan in past month (C-SSRS Suicidal Ideation #4 or #5) Or ?? Suicidal behavior within past 3 months (C-SSRS Suicidal Behavior) ?? Suicidal ideation with method, WITHOUT plan, intent or behavior in past month (C-SSRS Suicidal Ideation #3) Or ?? Suicidal behavior more than 3 months ago (C-SSRS Suicidal Behavior Lifetime) Or ?? Multiple risk factors and few protective factors ?? Wish to or Suicidal Ideation WITHOUT method, intent, plan or behavior (C-SSRS Suicidal Ideation #1 or #2) Or ?? Modifiable risk factors and strong protective factors Or ? No reported history of Suicidal Ideation or Behavior Location / Risk:Inpatient / Moderate: Suicidal ideation with intent and a plan in the past month but has protective factors, OR Suicidal behavior more than 3 months ago OR suicidal ideation with intent or method, no plan but has multiple risk factors and few protective factors.a. Directly address suicide risk with patient and family .b. Develop Safety plan including counseling about restriction and removal of firearms, medications, means to hang oneself, large sharp objects, etc. See safety plan.c. Consider transfer to Inpatient Psychiatry Hospital/ Inpatient Psychiatry Consult if unable to develop a safety plan. d. If patient is not transferred, will arrange for patient to be seen by Pediatric provider within one week of discharge, and will also place referral to outpatient behavioral health resources. 84911-7Cxnqytclhl + Plan forjGX8065-04-98P94:48:26Evalua tion + Plan noteTXT1.2.840.788934.1.13.104. 2.7.2.349184|[id number] ble for patient [address] 57168TXSGOXEMXIVCJRNPQYHWYL8060 -07-19T18:48:261.2.840.557342.1 .72.3.15|1.2.840.108354.1.13.10 4.2.7.2.727879_[id number] [facility] 2022-10-25 18:39:00 KkxF3w/dEMnxRsidxnXN 9sdu4Xn2HoJ ybVppDSPtMJwE5wa8SEJiJKLRpddoOt L43460-46-91I84:39:00 [facility] notified of consult by Dr. Franco. 81856-0Alxaqvorq department KvnpGU8173-05-21W90:44:42[facility] NoteTXT1.2.840.941118.1.13.104. 2.7.2.103287|[id number] ble for patient qujm283093963Bciou S Cryer RN[address] StreetTXTX[address] 54625YHICWKHYSEKUSYIRIUQBVA8233 -07-19T18:44:421.2.840.814410.1 .72.3.15|1.2.840.161589.1.13.10 4.2.7.2.727879_[id number] Russel Boudreaux RN [facility] 2022-10-25 15:06:15 Y9sFR0RjPiL8t9bjjrmg LzDQDvUMkUw BamfAi3e7DfgvfyWeCPiIB1R1Jbl0pU km7964-56-27R95:06:15 Patient ok's information to be released to following persons:Ara - girlfriend - [phone];Venita - best friend - [phone]. 07160-9Mvlqeleyx department GadiFJ0011-73-94J64:07:19[facility] NoteTXT1.2.840.440039.1.13.104. 2.7.2.677757|[id number] ble for patient [address] XlduZotbijktfFbajbsrhnDFMV68166 94343HSSCYPBSZSXJQKCGFIMWZY8939 -07-19T15:07:191.2.840.722424.1 .72.3.15|1.2.840.714237.1.13.10 4.2.7.2.727879_[id number] [facility] 2022-10-25 13:55:00 AIhZZi8d5yONzhwXNvfi RNtEWQVSDYw 0N1+ECl8h7t/rtCQmQdO6cf2BVYpmgT 6a5681-04-86T97:55:00 CC: patient presents to the ER with complaints of suicidal ideations by overdose of tylenol. Ingestion occurred around 1300. Patient reports she "filled up my hand" with tylenol 500mg and took them due to issues with her parents. Patient was administered activated charcoal via EMS and vomited up medication.Poison control .PMHx: see historyAwake, alert, oriented, resp reg unlabored, skin warm and dry, color appropriate for race, moves all ext without difficulty, amb without assistance. Appears in no distress. 97622-2Jcairannr department Triage aepoKM0913-92-87A48:06:03[facility] Triage noteTXT1.2.840.004904.1.13.104. 2.7.2.204073|[id number] ble for patient tkmn513600569Fivyjscs M Sal RNUT[address] EudyFvhsxxzeeLjvednkcdGYPL[address] 80477SDQSFUNEWTVJQIEGHQEIED3997 -07-19T14:06:031.2.840.451205.1 .72.3.15|1.2.840.985845.1.13.10 4.2.7.2.727879_[id number] Hazel Sumit Sal RN [facility] 2022-10-25 13:48:00 vKpBOb/AqG2QORGhybjS jtBs40Fu6BL dNy3fDuHjoEFSUrdjVLJ2hogp9/ZnF7 sq8033-60-16D39:48:00 [facility] Emergency Department NotePatient Name: Kasey Murphyate of : 1995 27 year old femaleTreatment Room: [place] [address]Medical Record Number: [id number] Care Physician: PATIENT DOES NOT HAVE A PCPPatient Escorted by: Self [9][facility]]EMS Treatment Prior to ED Arrival:[employer] PROCESSOR treatment: Medication (comment) Travel and Exposure Screening:SymptomsDoes patient have any of these symptoms?: (not recorded)Exposure ScreeningHas patient had contact with someone with a communicable disease in the last month?: (not recorded)Diseases exposed to:: (not recorded)Is Patient ?: (not recorded)Exposure Date: (not recorded)Chief Complaint:Chief Complaint Patient presents with Suicidal ideation History of Present Illness:The patient presents with EMS from home after an ingestion of acetaminophen in a suicide attempt. She reports she took a handful around 1 PM. EMS was called and did give her activated charcoal prior to arrival however she vomited that up before arrival to the ER. She denies complaints. No chest pain, abdominal pain or nausea and vomiting. She has a history of depression.Here for evaluation.Past Medical History/Immunizations:Past Medical History: Diagnosis Date Depression Tetanus received in last 5 years: Unknown Allergies:No Known AllergiesPast Social History:Tobacco Use Never Past Surgical History:History reviewed. No pertinent surgical history.Review of Systems: Review of Systems Constitutional: Negative for chills and fever. Respiratory: Negative for cough and shortness of breath. Cardiovascular: Negative for chest pain. Gastrointestinal: Negative for abdominal pain, nausea and vomiting. Genitourinary: Negative for dysuria. Musculoskeletal: Negative for arthralgias, neck pain and neck stiffness. Skin: Negative for wound. Neurological: Negative for dizziness. Psychiatric/Behavioral: Positive for suicidal ideas. Negative for agitation. Endocrine: Negative for goiter. Physical Exam: ED Triage Vitals [10/25/22 1355] Weight 99.8 kg (220 lb) Actual or estimated Estimated by patient/family report Height 1.549 m (5' 1") BP 120/77 Pulse 72 Resp 22 Temp 35.7 ?C (96.3 ?F) Temp source Oral SpO2 98 % Measured on Room air Physical ExamVitals and nursing note reviewed. Constitutional: Appearance: Normal appearance. She is obese. HENT: Head: Normocephalic and atraumatic. Mouth/Throat: Mouth: Mucous membranes are dry. Cardiovascular: Rate and Rhythm: Normal rate and regular rhythm. Pulses: Normal pulses. Pulmonary: Effort: Pulmonary effort is normal. No respiratory distress. Breath sounds: No stridor. No wheezing or rhonchi. Abdominal: General: There is no distension. Palpations: Abdomen is soft. Tenderness: There is no abdominal tenderness. There is no guarding. Musculoskeletal: General: Normal range of motion. Cervical back: Normal range of motion and neck supple. Skin: General: Skin is warm and dry. Neurological: General: No focal deficit present. Mental Status: She is alert and oriented to person, place, and time. Radiology:No orders to display Lab Results:Lab Results CBC WITH DIFF - Abnormal Result Value Ref Range WBC 13.88 (*) 4.30 - 11.10 10*3/?L RBC 4.64 3.93 - 5.25 10*6/?L HGB 13.0 11.6 - 15.0 g/dL HCT 40.0 35.7 - 45.2 % MCV 86.2 80.6 - 95.5 fL MCH 28.0 25.9 - 32.8 pg MCHC 32.5 31.6 - 35.1 g/dL RDW-SD 43.9 39.0 - 49.9 fL RDW-CV 14.0 12.0 - 15.5 % PLT 308 166 - 358 10*3/?L MPV 10.7 9.5 - 12.9 fL NRBC/100 WBC 0.0 0.0 - 10.0 /100 WBCs NRBC x10^3 <0.01 10*3/?L GRAN MAT (NEUT) % 73.3 % IMM GRAN % 0.40 % LYMPH % 20.0 % MONO % 5.4 % EOS % 0.6 % BASO % 0.3 % GRAN MAT x10^3(ANC) 10.18 (*) 1.88 - 7.09 10*3/uL IMM GRAN x10^3 0.05 0.00 - 0.06 10*3/uL LYMPH x10^3 2.78 1.32 - 3.29 10*3/uL MONO x10^3 0.75 0.33 - 0.92 10*3/uL EOS x10^3 0.08 0.03 - 0.39 10*3/uL BASO x10^3 0.04 0.01 - 0.07 10*3/uL COMP. METABOLIC PANEL (60391) - Abnormal NA 136 135 - 145 mmol/L K 5.4 (*) 3.5 - 5.0 mmol/L CL 103 98 - 108 mmol/L CO2 TOTAL 23 23 - 31 mmol/L AGAP 10 2 - 16 BUN 13 7 - 23 mg/dL GLUCOSE 103 70 - 110 mg/dL CREATININE 0.53 0.50 - 1.04 mg/dL TOTAL BILI 0.8 0.1 - 1.1 mg/dL CALCIUM 9.0 8.6 - 10.6 mg/dL T PROTEIN 7.2 6.3 - 8.2 g/dL ALBUMIN 4.2 3.5 - 5.0 g/dL ALK PHOS 63 34 - 122 U/L ALTv 21 5 - 35 U/L AST(SGOT) 34 13 - 40 U/L eGFR 139.4 mL/min/1.73m2 URINE DRUG (IMMUNOASSAY) - COMPREHENSIVE DRUG SCREEN W/O REFLEX - Abnormal AMPHET Negative Negative ALLISON U Negative Negative BENZO U Presumptive Positive (*) Negative Cocaine Metabolite Presumptive Positive (*) Negative METHADONE Negative Negative OPIATES Negative Negative PCP Negative Negative THC Presumptive Positive (*) Negative URINALYSIS - Abnormal APPEARANCE Hazy (*) Clear COLOR Yellow Yellow PH 6.0 4.8 - 8.0 SP GRAVITY 1.019 1.003 - 1.030 GLU U QUAL Normal Normal BLOOD Negative Negative KETONES Negative Negative PROTEIN Negative Negative UROBILIN Normal Normal BILIRUBIN Negative Negative NITRITE Positive (*) Negative LEUK DRAKE 500/uL (*) Negative RBC/HPF 2 0 - 3 HPF WBC/HPF 25 (*) 0 - 5 HPF BACTERIA Moderate (*) Negative MUCOUS Slight (*) Negative LPF SQ EPITH 7 HPF ACETAMINOPHEN - Normal ACETAMINOP 11.0 10.0 - 30.0 ug/mL PROTHROMBIN TIME / INR - Normal PROTIME PATIENT 13.4 12.0 - 14.7 Seconds INR 1.1 ACTIVATED PARTIAL THRMPLAS MELIZA - Normal APTT Patient 29 23 - 38 Seconds COVID-19 (ID NOW RAPID TESTING) - Normal SARS-CoV-2 Rapid ID NOW Not Detected Not Detected ETHANOL ALCOHOL <10 mg/dL SALICYLATE SALICYLATE <10 mg/L COVID-19 (MOLECULAR TESTING - NUCLEIC ACID AMPLIFICATION) EKG:If EKG completed, see Procedure Note. Orders and Treatments:Orders Placed This Encounter Procedures CBC WITH DIFF COMP. METABOLIC PANEL (27415) URINE DRUG (IMMUNOASSAY) - COMPREHENSIVE DRUG SCREEN W/O REFLEX URINALYSIS ETHANOL ACETAMINOPHEN SALICYLATE PROTHROMBIN TIME / INR ACTIVATED PARTIAL THRMPLAS MELIZA COVID-19 (ID NOW TESTING) COVID-19 (MOLECULAR TESTING - NUCLEIC ACID AMPLIFICATION) LAB ONLY COVID INTERPRETATION Orders Placed This Encounter Medications sulfamethoxazole-trimethoprim (BACTRIM DS) 800-160 mg per tablet 1 tablet First Provider Eval:ED Events Date/Time Event User Comments 10/25/22 1357 Medical Screening Begins LILI FRANCO DO -- 10/25/22 1357 First Provider Evaluation LILI FRANCO DO -- ED COURSEDiagnosis/Impression as of 10/25/227 Intentional acetaminophen overdose, initial encounter Acute cystitis with hematuria Cocaine abuse Procedures: ProceduresMDM:Medical Decision MakingThe patient presents with EMS from home for evaluation after suicide attempt by taking a handful of Tylenol tablets around 1 PM today. She had had an argument before she took the ingestion. EMS was called and she was given activated charcoal prior to arrival however she did vomit that up. She denies complaints at present time. No abdominal pain or nausea and vomiting currently.Vital signs are stable here in the ER.Her physical examination is unremarkable.We will place the patient on suicide precautions.We will check laboratory studies including her LFTs, coagulation studies as well an acetaminophen level at 4 hours postingestion which is 5 PM.We will continue to monitor the patient here in the ER.Final disposition pending.1540 -the patient is resting comfortably here in examination room.Her urinalysis shows an infection.We will start the patient on Bactrim.Her UDS is positive for cocaine, marijuana and benzodiazepines.We will continue to monitor the patient here in the ER.She is pending an acetaminophen level at 4 hours postingestion which is 5 PM.1830 - the patient is doing well here in the EC. Her 4 hour acetaminophen level is 11. She is medically ok for eval by [facility]. 190 - the patient is signed out to Dr. Sanchez pending [facility] eval and final dispo. Problems Addressed:Acute cystitis with hematuria: acute illness or injuryIntentional acetaminophen overdose, initial encounter: acute illness or injuryAmount and/or Complexity of Data ReviewedIndependent Historian: EMSLabs: ordered. Decision-making details documented in ED Course.RiskPrescription drug management. Flowsheet Documentation: Scoring Tools: No data recorded Disposition/Condition:ED Disposition None Discharge Medications:Patient's Medications START taking these medications No medications on file CONTINUE taking these medications which have NOT CHANGED No medications on file START taking Modified Medications as Prescribed No medications on file STOP taking these medications DICYCLOMINE 20 MG TABLET Take 1 tablet by mouth 4 (four) times daily as needed for Abdominal pain. DOXYCYCLINE HYCLATE 100 MG CAPSULE Take 1 capsule by mouth 2 (two) times daily. IBUPROFEN 600 MG TABLET Take 1 tablet by mouth every 6 (six) hours as needed for Pain (scale 4-6). METOCLOPRAMIDE HCL 10 MG TABLET Take 1 tablet by mouth every 6 (six) hours as needed for Nausea and Vomiting (N/V). ONDANSETRON (ZOFRAN ODT) 8 MG DISINTEGRATING TABLET Take 1 tablet by mouth every 8 (eight) hours as needed for Nausea and Vomiting (N/V). ONDANSETRON 4 MG DISINTEGRATING TABLET Take 1 tablet by mouth every 8 (eight) hours as needed for Nausea and Vomiting (N/V). Follow-up:Electronically signed by: Lili Franco DO10/25/22 1849 [id number] Emergency department [id number]:49:28Physic milly Emergency department [id number] ble for patient [address]TX[place] [id number] -07-19T18:49:[id number] .72.3.15|[id number] [facility] 2022-10-25 13:48:00 [id number]:48:00 The patient was screened by [facility]. The patient states that she does not believe she requires inpatient treatment. The [facility] screening does not either. The patient denies homicidal suicidal ideations on my interview. She states she would like to follow-up as an outpatient for treatment therapy. The patient be discharged with Macrobid for UTI. She also has cocaine in urine as well. The patient be discharged to follow-up. She can return for any questions or concerns. Dale Sanchez MD10/25/222201 [id number] Emergency department [id number]:02:05Physic milly Emergency department [id number] ble for patient [address] [id number] -07-19T22:02:[id number] .72.3.15|[id number] [facility]
[2023-08-02 13:44] LABS: Absolute Basophils 0.1 K/uL (0-0.5); Absolute Eosinophils 0.2 K/uL (0-0.5); Absolute Lymphocytes (CBC) 2.5 K/uL (0.7-4.9); Absolute Monocytes 0.6 K/uL (0.1-1.3); Absolute Neutrophil 7.1 K/uL (1.8-8.0); Basophils % 0.7 % (0-1.3); Eosinophils % 1.5 % (0-4.4); Hematocrit 42.4 % (36.0-45.0); Hemoglobin 13.5 g/dL (12.0-15.0); Lymphocytes % 24.3 % (15.3-44.8); MCH 27.7 pg (27.0-35.0); MCHC 31.9 g/dL (32.0-36.0); MCV 86.9 fL (80-100); MPV 8.6 fL (7.6-11.3); Monocytes % 5.6 % (3.3-12.3); Neutrophils % 67.9 % (41.7-73.7); Platelets 358 thou/uL (152-406); RBC Red Blood Cell Count 4.88 M/uL (3.86-4.86); Red Cell Distribution Width 13.4 % (12.1-15.2)
[2023-08-02 14:05] LABS: Albumin 3.5 g/dL (3.4-5.0); Albumin/Globulin Ratio 0.9 (1.1-1.8); Anion Gap 7.6 mEq/L (5.0-15.0); Bilirubin Total 0.3 mg/dL (0.2-1.0); Globulin 3.7 g/dL (2.3-3.5); Potassium 3.6 mEq/L (3.5-5.1); Protein, Total 7.2 g/dL (6.4-8.2)
--- NOTE | 2023-08-02 14:05 | RAD REPORT ---
EXAM DESCRIPTION: US - Abdomen Exam Limited - 08/02/2023 1:15 pm CLINICAL HISTORY: ABD PAIN COMPARISON: No comparisons TECHNIQUE: Sonographic grayscale and color flow images of the right upper abdominal quadrant were o btained. FINDINGS: The gallbladder demonstrates echogenic mildly shadowing gallstones near the fundus. No per icholecystic fluid or gallbladder wall thickening. The common bile duct is normal measuring 2 mm. The liver demonstrates no findings of intrahepatic biliary dilatation. IMPRESSION: Small gallstones near the fundus. No sonographic findings to suggest acute cholecystitis .
[2023-08-02 15:45] LABS: Specific Gravity 1.026 (1.005-1.030); Sqamous Epithelial <5 /HPF (None Seen); Urine Bacteria <20 /HPF (<20); Urine Bilirubin NEGATIVE (Negative); Urine Blood Negative (Negative); Urine Clarity Extremely Turbid (Clear); Urine Color Light-Yellow (Yellow); Urine Crystals Unidentified Few /HPF (None Seen); Urine Culture Reflex Order NOT NEEDED; Urine Glucose NEGATIVE (Negative); Urine Ketones NEGATIVE (Negative); Urine Microscopic Reflex YN ORDER UMIC; Urine Mucus Slight /HPF (None Seen); Urine Nitrite NEGATIVE (Negative); Urine Protein NEGATIVE (Negative); Urine Urobilinogen Normal (Normal); Urine pH 6.5 (5.0-7.0)
--- NOTE | 2023-08-02 16:00 | ER ---
Nurse's Notes [facility] Name: Clara Vo Age: 27 yrs Sex: Female : 1995 Arrival Date: 08/02/2023 Time: 12:11 Bed 9 Private MD: Diagnosis: Other cholelithiasis without obstruction Presentation: 08/01 12:30 Chief complaint: Patient states: has been having a lot of pain to RUQ and then I vomit iw and it makes my upper back hurt, pain lasts 15 min to an hour , pain has been going on for 6-7 months but has now been more frequent and more painful. Coronavirus screen: At this time, the client does not indicate any symptoms associated with coronavirus-19. Ebola Screen: Patient negative for fever greater than or equal to 101.5 degrees Fahrenheit, and additional compatible Ebola Virus Disease symptoms Patient denies exposure to infectious person. Patient denies travel to an Ebola-affected area in the 21 days before illness onset. No symptoms or risks identified at this time. Initial Sepsis Screen: Does the patient meet any 2 criteria? No. Patient's initial sepsis screen is negative. Does the patient have a suspected source of infection? No. Patient's initial sepsis screen is negative. Risk Assessment: Do you want to hurt yourself or someone else? Patient reports no desire to harm self or others. Onset of symptoms was August 02, 2023. 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 - Infectious Disease History:: Denies. - Social history:: Smoking status: . - Family history:: not pertinent. Screenin:40 [facility] ED Fall Risk Assessment (Adult) History of falling in the last 3 months, nj1 including since admission No falls in past 3 months (0 pts) Confusion or Disorientation No (0 pts) Intoxicated or Sedated No (0 pts) Impaired Gait No (0 pts) Mobility Assist Device Used No (0 pt) Altered Elimination No (0 pt) Score/Fall Risk Level 0 - 2 = Low Risk Oriented to surroundings, Maintained a safe environment, Hourly rounding (assess needs \T\ fall precautionary measures) done. Abuse screen: Denies threats or abuse. Denies injuries from another. Nutritional screening: No deficits noted. Tuberculosis screening: No symptoms or risk factors identified. Assessment: 13:31 General: Appears in no apparent distress. comfortable, Behavior is calm, cooperative, nj1 appropriate for age. 13:31 Pain: Complains of pain in abdomen Pain currently is 6 out of 10 on a pain scale. nj1 Neuro: Level of Consciousness is awake, alert, obeys commands, Oriented to person, place, time, situation. Cardiovascular: Patient's skin is warm and dry. Respiratory: Airway is patent Respiratory effort is even, unlabored. GI: Abdomen is obese, Reports upper abdominal pain. 15:27 Reassessment: Patient appears in no apparent distress at this time. Patient and/or nj1 family updated on plan of care and expected duration. Pain level reassessed. Patient is alert, oriented x 3, equal unlabored respirations, skin warm/dry/pink. 16:14 Reassessment: Patient appears in no apparent distress at this time. Patient and/or nj1 family updated on plan of care and expected duration. Pain level reassessed. Patient is alert, oriented x 3, equal unlabored respirations, skin warm/dry/pink. Vital Signs: 12:30 BP 146 / 97; Pulse 73; Resp 16; Temp 97.3; Pulse Ox 100% on R/A; Weight 99.79 kg; iw Height 5 ft. 1 in. ; Pain 6/10; 15:30 BP 153 / 90; Pulse 57; Resp 17; Pulse Ox 99% on R/A; nj1 12:30 Body Mass Index 41.57 (99.79 kg, 154.94 cm) iw 12:30 Pain Scale: Adult iw ED Course: 12:13 Patient arrived in ED. rg4 12:21 Anibal Greco MD is Attending Physician. rt 12:31 Triage completed. iw 12:32 Arm band placed on. iw 13:07 CBC with Diff Sent. bc6 13:07 CMP Sent. bc6 13:07 Lipase Sent. bc6 13:07 Initial lab(s) drawn, by me, sent to lab. Inserted saline lock: 22 gauge in right bc6 antecubital area, using aseptic technique. Blood collected. 13:17 Abdomen Limited US In Process Unspecified. EDMS 13:21 Deborah Lindo, RN is Primary Nurse. nj1 13:41 Patient has correct armband on for positive identification. Bed in low position. Call nj1 light in reach. Adult w/ patient. Provided Education on: call light, fall precautions. 15:59 Venkata Ko MD is Referral Physician. rt Administered Medications: No medications were administered Outcome: 15:59 Discharge ordered by MD. rt 16:24 Patient left the ED. nj1 Signatures: Dispatcher [employer] EDMS Lyla Skaggs, RN RN iw Netta Thorne rg4 Anibal Greco MD MD rt Treva Low 6 Deborah Lindo, RN RN nj1 Corrections: (The following items were deleted from the chart) 12:32 12:31 PSHx: None; iw iw 12:33 12:30 Chief complaint: Patient states: has been having a lot of pain to RUQ and then I iw vomit and it makes my upper back hurt, pain lasts 15 min to an hour iw
--- NOTE | 2023-08-02 16:00 | EDPHYS ---
Physician Documentation [facility] Name: Clara Vo Age: 27 yrs Sex: Female : 1995 Arrival Date: 08/02/2023 Time: 12:11 Bed 9 Private MD: ED Physician Anibal Greco HPI: 08/01 16:03 This 27 yrs old Female presents to ER via Ambulatory with complaints of rt Abdominal Pain, Back Pain, Vomiting. 16:03 Patient presents to the ED with an intermittent right upper quadrant pain that radiates rt to the right flank. Is been present for many months. Seems to be increasing in frequency. It is worse after eating. Denies other acute complaints at this time. Does have nausea and vomiting associated with the pain when it is bad. Symptoms are moderate in severity, no other aggravating alleviating factors.. 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 - Infectious Disease History:: Denies. - Social history:: Smoking status: . - Family history:: not pertinent. ROS: 16:03 Constitutional: Negative for fever, chills, and weight loss, Cardiovascular: Negative rt for chest pain, palpitations, and edema, Respiratory: Negative for shortness of breath, cough, wheezing, and pleuritic chest pain, MS/Extremity: Negative for injury and deformity, Skin: Negative for injury, rash, and discoloration, Neuro: Negative for headache, weakness, numbness, tingling, and seizure, 16:03 Abdomen/GI: Positive for abdominal pain, nausea and vomiting, Exam: 16:03 Constitutional: This is a well developed, well nourished patient who is awake, alert, rt and in no acute distress. Head/Face: Normocephalic, atraumatic. Chest/axilla: Normal chest wall appearance and motion. Nontender with no deformity. No lesions are appreciated. Cardiovascular: Regular rate and rhythm with a normal S1 and S2. No gallops, murmurs, or rubs. Normal PMI, no JVD. No pulse deficits. Respiratory: Lungs have equal breath sounds bilaterally, clear to auscultation and percussion. No rales, rhonchi or wheezes noted. No increased work of breathing, no retractions or nasal flaring. Skin: Warm, dry with normal turgor. Normal color with no rashes, no lesions, and no evidence of cellulitis. MS/ Extremity: Pulses equal, no cyanosis. Neurovascular intact. Full, normal range of motion. Neuro: Awake and alert, GCS 15, oriented to person, place, time, and situation. Cranial nerves II-XII grossly intact. Motor strength 5/5 in all extremities. Sensory grossly intact. Cerebellar exam normal. Normal gait. 16:03 Abdomen/GI: Tenderness to the right upper quadrant without rebound, guarding, distention, Vital Signs: 12:30 BP 146 / 97; Pulse 73; Resp 16; Temp 97.3; Pulse Ox 100% on R/A; Weight 99.79 kg; iw Height 5 ft. 1 in. ; Pain 6/10; 15:30 BP 153 / 90; Pulse 57; Resp 17; Pulse Ox 99% on R/A; nj1 12:30 Body Mass Index 41.57 (99.79 kg, 154.94 cm) iw 12:30 Pain Scale: Adult iw MDM: 12:34 Patient medically screened. rt 16:05 Differential diagnosis: Cholelithiasis, cholecystitis, pyelo-, ureterolithiasis. Data rt reviewed: vital signs, nurses notes, lab test result(s), radiologic studies. Test considered but Not performed: CT: No focal right lower quadrant tenderness, clear gallstones on ultrasound, CT scan is not indicated. Counseling: I had a detailed discussion with the patient and/or guardian regarding the historical points, exam findings, and any diagnostic results supporting the discharge/admit diagnosis, lab results, radiology results, the need for outpatient follow up, to return to the emergency department if symptoms worsen or persist or if there are any questions or concerns that arise at home. Response to treatment: the patient's symptoms have markedly improved after treatment. 08/01 12:44 Order name: CBC with Diff; Complete Time: 14:08 rt 08/01 12:44 Order name: CMP; Complete Time: 14:08 rt 08/01 12:44 Order name: Lipase; Complete Time: 14:08 rt 08/01 12:44 Order name: Test, Urine; Complete Time: 15:55 rt 08/01 12:44 Order name: Urinalysis w/ reflexes; Complete Time: 15:55 rt 08/01 12:44 Order name: Abdomen Limited US; Complete Time: 14:08 rt 08/01 12:44 Order name: IV Saline Lock; Complete Time: 13:07 rt 08/01 12:44 Order name: Labs collected and sent; Complete Time: 13:07 rt 08/01 13:16 Order name: Labs - recollect needed: recollect all labs please; Complete Time: 13:35 em1 Administered Medications: No medications were administered Disposition Summary: 08/02/23 15:59 Discharge Ordered Notes: Location: Home rt Problem: new rt Symptoms: have improved rt Condition: Stable rt Diagnosis - Other cholelithiasis without obstruction rt Followup: rt - With: Venkata Ko MD - When: 5 - 6 days - Reason: Discharge Instructions: - Discharge Summary Sheet rt - Cholelithiasis rt Forms: - Medication Reconciliation Form rt - Antibiotic Education rt - Prescription Opioid Use rt - Patient Portal Instructions rt - Leadership Thank You Letter rt Prescriptions: - ondansetron 4 mg Oral Tablet,disintegrating - take 1 tablet ORAL route every 6 hours as needed for nausea; 15 tablet; rt Refills: 0, Product Selection Permitted - Tramadol 50 mg Oral tablet - take 1 tablet ORAL route every 8 hours as needed; 15 tablet; Refills: 0, rt Product Selection Permitted Signatures: Dispatcher [employer] Lyla Alcocer RN RN iw Martinez, Asad em1 Anibal Greco MD MD rt Corrections: (The following items were deleted from the chart) 12:32 12:31 PSHx: None; she nowak 12:46 12:46 Abdomen Limited+US.RAD.BRZ ordered. [place] QU[place]N
[2023-08-02 16:40] VITALS: BP 153/90; TEMP 97.3; O2SAT 99
== END 2023-08-02 16:24 | disposition home or self-care (01) ==
LOC: ER 12:11
DX: K80.80 Other cholelithiasis without obstruction (principal)
CPT/HCPCS: 36415; 76705; 80053; 81001; 81025; 83690; 85025